=== PATIENT | female | born 1960 | race Caucasian/White ===

== ENCOUNTER 2017-06-21 17:40 | Emergency (ER) | payer SELFPAY ==
[2017-06-21 23:44] LABS: HEMOGLOBIN 12.7 g/dL (12-16); LYMPHOCYTES 34.9 % (15-50); MCH 29.3 pg (26.0-34.0); MCHC 34.3 g/dL (31.0-37.0); MCV 85.5 fL (80.0-100.0); NEUTROPHILS 59.2 % (40-80); PLATELET COUNT 213 10x3/uL (130-400); RBC 4.33 10x6/uL (4.00-5.40); RDW 12.9 % (11.5-14.5); WBC 6.8 10x3/uL (4.8-10.8)
[2017-06-21 23:46] LABS: ALBUMIN 3.3 g/dL (3.4-5.0); ALKALINE PHOSPHATASE 105 U/L (46-116); ALT (SGPT) 25 U/L (10-68); CALC OSMOLALITY 276 mosm/kg (275-300); CALCIUM 8.7 mg/dL (8.5-10.1); CARBON DIOXIDE 27.6 mmol/L (21.0-32.0); CHLORIDE - SERUM 103 mmol/L (98-107); CREATININE - SERUM 0.8 mg/dL (0.6-1.3); GLUCOSE 94 mg/dL (74-106); POTASSIUM - SERUM 3.8 mmol/L (3.5-5.1); PROTEIN - SERUM 7.3 g/dL (6.4-8.2); SODIUM 138 mmol/L (136-145); UREA NITROGEN 14 mg/dL (7-18); eGFR NON AFRICAN AMERICAN 78 mL/min (90-120)
[2017-06-21 23:51] LABS: AMYLASE - SERUM 82 U/L (25-115); LIPASE 164 U/L (73-393)
[2017-06-21 23:53] LABS: TROPONIN-I < 0.017 ng/mL (0.000-0.060)
[2017-06-21 23:55] LABS: APPEARANCE CLEAR (CLEAR); BILIRUBIN NEGATIVE (NEGATIVE); COLOR YELLOW (YELLOW); GLUCOSE NEGATIVE (NEGATIVE); KETONE NEGATIVE (NEGATIVE); LEUKOCYTE ESTERASE 1+ (NEGATIVE); NITRITE NEGATIVE (NEGATIVE); PROTEIN NEGATIVE (NEGATIVE); UROBILINOGEN NORMAL (NORMAL)
[2017-06-21 23:56] LABS: BACTERIA FEW /hpf (NONE SEEN); EPITHELIAL CELLS 0-5 /hpf (0-5); RED CELLS - URINE 0-5 /hpf (0-5); WHITE CELLS - URINE 0-5 /hpf (0-5)
== END 2017-06-22 00:40 | disposition home or self-care (01) ==
LOC: D.ER 17:40
PROVIDERS: Nurse Practitioner Acute Care
DX: R51 Headache (principal); R07.89 Other chest pain

== ENCOUNTER 2017-11-22 12:52 | Outpatient (CLI) | payer OTHER | END 2017-11-22 14:50 | disposition home or self-care (01) | LOC: D.OPS 12:52 → EDSTATUS 13:00 → D.OPS 13:00 | DX: M54.5 Low back pain (principal); Z53.9 Procedure and treatment not carried out, unspecified reason ==

== ENCOUNTER → 2017-12-21 17:19 | Outpatient (CLI) | payer OTHER | END | disposition home or self-care (01) | LOC: D.MAMMO 09:45 | DX: Z12.31 Encounter for screening mammogram for malignant neoplasm of breast (principal) ==

== ENCOUNTER → 2018-01-19 17:07 | Outpatient (CLI) | payer OTHER | END | disposition home or self-care (01) | LOC: D.MAMMO 10:30 | DX: R92.8 Other abnormal and inconclusive findings on diagnostic imaging of breast (principal) ==

== ENCOUNTER → 2018-08-15 18:43 | Outpatient (CLI) | payer OTHER ==
[~2018-08-15 18:43] MED LIST: AMBIEN5 MG PO; DESERYL50 M2 PO; GABAPENTIN100 MG PO; NORCO 5/325 TAB1 TAB PO
== END | disposition home or self-care (01) ==
LOC: D.MAMMO 07-24 09:00
DX: R92.8 Other abnormal and inconclusive findings on diagnostic imaging of breast (principal)

== ENCOUNTER 2018-08-19 21:17 | Emergency (ER) | payer OTHER ==
[~2018-08-19] VITALS: Ht 157.5 cm; Wt 81.8 kg
[2018-08-19 21:22] VITALS: Ht 157.5 cm; Wt 81.8 kg
[2018-08-19] MEDS ORDERED: DESERYL50 M2 PO (21:24)
[2018-08-19 21:43] LABS: BASOPHILS 0.2 % (0-2); EOSINOPHILS 1.4 % (0-7); HEMATOCRIT 36.7 % (36.0-48.0); HEMOGLOBIN 12.6 g/dL (12-16); IMMATURE GRANULOCYTES 0.2 % (0-5); LYMPHOCYTES 32.2 % (15-50); MCH 30.7 pg (26.0-34.0); MCHC 34.3 g/dL (31.0-37.0); MCV 89.5 fL (80.0-100.0); MEAN PLATELET VOLUME 9.7 fL (7.4-10.4); MONOCYTES 6.8 % (2-11); NEUTROPHILS 59.2 % (40-80); PLATELET COUNT 179 10x3/uL (130-400); RDW 13.2 % (11.5-14.5); WBC 5.7 10x3/uL (4.8-10.8)
[2018-08-19 21:47] LABS: APTT 29.1 SECONDS (22.8-39.4); INR 1.03 (0.85-1.17); PROTIME 13.1 SECONDS (11.6-15.0)
[2018-08-19 21:59] LABS: ALBUMIN 3.3 g/dL (3.4-5.0); ALKALINE PHOSPHATASE 91 U/L (46-116); ALT (SGPT) 44 U/L (10-68); BILIRUBIN - TOTAL 0.43 mg/dL (0.2-1.3); CALC OSMOLALITY 284 mosm/kg (275-300); CHLORIDE - SERUM 103 mmol/L (98-107); CKMB 0.6 U/L (0.0-3.6); CREATINE KINASE 45 UL (21-215); CREATININE - SERUM 0.9 mg/dL (0.6-1.3); GLUCOSE 110 mg/dL (74-106); MAGNESIUM - SERUM 2.1 mg/dL (1.8-2.4); POTASSIUM - SERUM 3.7 mmol/L (3.5-5.1); PROTEIN - SERUM 6.9 g/dL (6.4-8.2); SODIUM 140 mmol/L (136-145); TROPONIN-I < 0.017 ng/mL (0.000-0.060); UREA NITROGEN 26 mg/dL (7-18); eGFR NON AFRICAN AMERICAN 68 mL/min (90-120)
[2018-08-19] MEDS ORDERED: GABAPENTIN100 MG PO (22:10)
[2018-08-19] MEDS ORDERED: AMBIEN5 MG PO (22:10)
[2018-08-19] MEDS ORDERED: NORCO 5/325 TAB1 TAB PO (22:10)
[2018-08-20 00:12] VITALS: BP 120/78
== END 2018-08-20 00:13 | disposition home or self-care (01) ==
LOC: D.ER 21:17
PROVIDERS: Emergency Medicine
DX: R07.89 Other chest pain (principal); G47.00 Insomnia, unspecified; G62.9 Polyneuropathy, unspecified